=== PATIENT | female | born 1980 | race Caucasian/White ===

== ENCOUNTER 2018-06-12 10:46 | Emergency (ER) | payer SELFPAY ==
[2018-06-12] MEDS ORDERED: HYDROcodone/ACETAMIN 5-325 MG* 1 TAB PO ONE (11:36)
--- OUTSIDE RECORDS SUMMARY | 2018-06-12 11:43 | XMS REPORT | Continuity of Care Document ---
:1980 Author Organization [facility] Care Team Providers Name Role Phone ARUN FANG Admitting Physician ARUN FANG Attending Physician DMITRIY GOTTI Primary Care Physician Allergies and Intolerances No Known Allergies Medications RxNorm Medication Dose Route Instructions Start Date End Date Status Cyclobenzaprine Oral 10 mg oral orally 3 times Active per day (10 days) murina Use as Directed Active 19791015 Naproxen 500 MG Oral 500 mg oral orally 2 times Active Tablet per day (10 days) 8640 Prednisone 40 mg oral orally every day Active (5 days) Cephalexin Oral 500 mg oral orally 4 times Completed per day (7 days) 892190 Clindamycin 300 MG 300 mg oral orally 4 times Completed Oral Capsule per day (10 days) Problems No Data in the system Procedures No data in the system Results Radiology Results Order: SPINE CERVICAL COMPLETEExam Completion Date:05/28/2018 13: 1:22 PM SPINE CERVICAL COMPLETE INDICATION: Pain. Study: Frontal, lateral, and oblique views. COMPARISON: None. Findings/ impression: Moderate disc height loss at C5-6 and C6-C7 with anterior and posterior endplate spurs. Neural foraminal encroachment at C6- C7 bilaterally from uncovertebral joint spurring. No acute fracture, listhesis, or prevertebral soft tissue swelling. Electronically signed By: Omar Ngo M.D. Read By: OMAR NGO Date: 05/28/2018 13:31 Social History Code Code System Social History Observation Description Dates Observed 235284733 SNOMED CT Current Smoking Status Never smoker UNK AdministrativeGender Sex Assigned At Unknown Vital Signs Code Code System Vitals Value Date 8310-5 LOINC Body Temperature 98.8 [degF] 05/28/2018 8865-8 LOINC Pulse Rate 78 {beats}/min 05/28/2018 9279-1 LOINC Respiratory Rate 18 /min 05/28/2018 55265-9 LOINC O2% BldC Oximetry 96 % 05/28/2018 8480-6 LOINC BP Systolic 135 mm[Hg] 05/28/2018 8462-4 LOINC BP Diastolic 88 mm[Hg] 05/28/2018 8302-2 LOINC Height 62 [in_i] 05/28/2018 91934-0 LOINC Weight 88 kg 05/28/2018 3140-1 LOINC Body surface area Derived from formula 1.89 m2 05/28/2018 69713-7 LOINC BMI (Body Mass Index) 35.7 kg/m2 05/28/2018 Goals Section No data in the system Health Concerns No data in the systemEncounter Diagnosis Date Code Code System Diagnosis Status M54.12 ICD10 RADICULOPATHY CERVICAL REGION Active Advance Directives *RHIO - CONSENT IS YES Directive Type 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 Supporting Document Name Address Phone No Directive Type 07/24/2016 7:49:43 Not Specified Not Specified Not Specified None No specified AM Family History Relationship: Father Health Problem Age At Onset Notes Diabetic - good control Hypertension (Hypertensive disorder) Functional Status Code Functional Condition Code System Date Status Independent adls SNOMED CT 05/28/2018 Active Appears well nourished/hydrated SNOMED CT 05/28/2018 Active Immunizations Vaccine Code Code System Vaccine Name Date Status 115 CVX tetanus toxoid, reduced diphtheria 06/14/2014 Completed toxoid, and acellular pertussis vaccine, adsorbed INFLUENZA 2015 Completed Medical Equipment No data in the system Mental Status Code Cognitive Condition Code System Date Status No acute distress SNOMED CT 05/28/2018 Active [facility] [address] [facility]/28[facility]2018 Active Assessment and Plan Assessments No data in the systemPlan Of Treatment No data in the systemPending Tests No data in the system Hospital Discharge Instructions No data in the system Reason for Visit Reason for Visit Neck Pain
--- NOTE | 2018-06-12 12:52 | RAD ---
INDICATION: Severe neck pain with radiation to the LEFT arm for several weeks. COMPARISON: No relevant prior exams available on the [facility] PACS for comparison. TECHNIQUE: Multidetector CT images foramen magnum to lung apices without contrast. Multiplanar reformation. REPORT: 0.5 cm short axis LEFT internal jugular lymph node within normal size limits. Additional normal sized cervical lymph nodes visualized. Negative for lymphadenopathy. Normal vertebral alignment accounting for exam positioning without spondylolisthesis or subluxation at any level. 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 Negative for cervical vertebral body or posterior element fracture. Negative for paravertebral hematoma. At C4-C5 there is mild disc space narrowing. Negative for spinal stenosis. At C5-C6 there is moderately severe disc space narrowing and mild dorsal disc osteophyte complex with only mild resulting impression on the ventral margin of the thecal sac. At C6-C7 there is moderately severe disc space narrowing and dorsal disc osteophyte complex with only mild resulting impression on the ventral margin of the thecal sac. Uncinate process spurring results in moderately severe LEFT foraminal stenosis. IMPRESSION: #. Negative for cervical spine fracture or malalignment. #. 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 #. Degenerative spondylosis and uncinate process osteoarthritis. Resulting slight narrowing of the central canal at C5-C6 and C6-C7 and moderately severe LEFT unilateral foraminal stenosis at C6-C7.
[2018-06-12 13:49] VITALS: BP 140/98
--- NOTE | 2018-06-13 07:24 | ED ---
Neck Pain - HPI Summary HPI Summary: Patient is a 38-year-old female presenting with severe bilateral neck pain extending to the left arm with numbness and tingling since awakening this morning. She endorses pain over the past several weeks, however this has been intermittent and worse drug upon wakening. She denies any trauma or injury to the area. She has never had neck pain or spine pain in the past. She endorses 10/10 pain, constant, burning with radiation to the left arm. Denies any weakness or range of motion issues, however endorses no symptoms tingling without color temperature changes. She has been taking ibuprofen without relief. She states exacerbation occurred approximately 2 weeks ago and was given Flexeril and steroids with good relief. - History of Current Complaint Chief Complaint: EDNeckComplaint Stated Complaint: NECK PAIN Time Seen by Provider: 06/12/18 11:13 Hx Obtained From: Patient Onset/Duration Of Injury/Symptoms: Hours Timing: Constant Onset/Duration: Gradual Onset Severity Initially: Moderate Severity Currently: Moderate Pain Intensity: 6 Pain Scale Used: 0-10 Numeric Character: Aching, Stiff, Burning Aggravating Factors: Position, Movement Alleviating Factors: Nothing Associated Signs & Symptoms: Positive: Negative. Negative: Nuchal Rigity, Weakness, Headache, Paresthesia - Risk Factors Meningitis Risk Factors: Negative - Allergies/Home Medications Allergies/Adverse Reactions: Allergies Allergy/AdvReac Type Severity Reaction Status Date / Time No Known Allergies Allergy Verified 06/12/18 11:12 Home Medications: Home Medications Cyclobenzaprine TAB* [Flexeril 10 MG TAB*] 10 mg PO Q8HR PRN 06/12/18 [History Confirmed 06/12/18] Naproxen [Naprosyn 500 mg tab] 500 mg PO Q6HR PRN 06/12/18 [History Confirmed ] PMH/Surg Hx/FS Hx/Imm Hx Previously Healthy: Yes - Immunization History Hx Pertussis Vaccination: No Immunizations Up to Date: Yes Infectious Disease History: No Infectious Disease History: Denies: Traveled Outside the [place] in Last 30 Days - Social History Occupation: Employed Full-time Lives: With Family Alcohol Use: None Hx Substance Use: No Substance Use Type: Reports: None Hx Tobacco Use: No Smoking Status (MU): Never Smoked Tobacco Review of Systems Constitutional: Negative Negative: Fever, Chills, Fatigue, Skin Diaphoresis Negative: Palpitations, Chest Pain Negative: Shortness Of Breath, Cough Genitourinary: Negative Positive: no symptoms reported, see HPI Negative: Myalgia Skin: Negative Positive: Paresthesia, Numbness Psychological: Normal All Other Systems Reviewed And Are Negative: Yes Physical Exam Triage Information Reviewed: Yes Vital Signs On Initial Exam: Initial Vitals Temp Pulse Resp BP Pulse Ox 97.5 F 100 16 159/96 100 06/12/18 11:00 06/12/18 11:00 06/12/18 11:00 06/12/18 11:00 06/12/18 11:00 Vital Signs Reviewed: Yes Appearance: Positive: Well-Appearing, Well-Nourished Skin: Positive: Warm, Skin Color Reflects Adequate Perfusion Head/Face: Positive: Normal Head/Face Inspection Eyes: Positive: EOMI, PEPE, Conjunctiva Clear Neck: Positive: Supple, No Lymphadenopathy Respiratory/Lung Sounds: Positive: Clear to Auscultation, Breath Sounds Present Cardiovascular: Positive: RRR, Pulses are Symmetrical in both Upper and Lower Extremities Musculoskeletal: Positive: Other - ROM limited d/t pain. Negative: Edema Left, Edema Right Neurological: Positive: Speech Normal, Other - N/T in the left hand/arm Psychiatric: Positive: Normal AVPU Assessment: Alert Diagnostics - Vital Signs Vital Signs Temp Pulse Resp BP Pulse Ox 06/12/18 13:48 98.2 F 93 18 140/98 98 06/12/18 11:00 97.5 F 100 16 159/96 100 - Laboratory Lab Statement: Any lab studies that have been ordered have been reviewed, and results considered in the medical decision making process. Neck Course/Dx - Course Course Of Treatment: On physical examination, patient is exquisitely tender with movement of the left arm radiating up into the left lateral side of the neck and down the arm with numbness or tingling. No weakness is noted. She is tearful on examination. She is given 2 hydrocodone's in the ED, heat pack and she is asked for a soft collar. CT obtained which shows degenerative spondylosis. Resulting slight narrowing of the central canal at C5 and C6 and C6 and C7 and moderately severe left unilateral foraminal stenosis at C6 and C7. This could be contributing to her cervical radiculopathy. She is given neurosurgery follow-up for symptoms not well improved with massage, heat, ibuprofen, Flexeril and rest. She understands these return precautions and will follow-up. - Diagnoses Differential Dx/HQI/PQRI: Positive: Arthritis, Dystonia Provider Diagnoses: Cervical radiculopathy Discharge - Sign-Out/Discharge Documenting (check all that apply): Patient Departure - Discharge Plan Condition: Stable Disposition: HOME Prescriptions: Cyclobenzaprine TAB* [Flexeril TAB*] 10 mg PO BID PRN #15 tab PRN Reason: Pain Hydrocodone/Acetamin 10/325(NF [[place] 10/325 (NF)] 1 tab PO Q6H #12 tab MDD 4 predniSONE TAB* [Deltasone TAB*] 50 mg PO DAILY #5 tab MDD 1 Patient Education Materials: Cervical Radiculopathy (ED) Forms: *Work Release Referrals: No Primary Care Phys,NOPCP [Primary Care Provider] - Mic Julio MD [Medical Doctor] - Additional Instructions: Moist heat Massage rehab care assistant may help Ibuprofen 600mg 3 times daily For pain not well controlled with only ibuprofen, he may add the hydrocodone 10 mg up to 4 times daily Flexeril twice daily Please follow-up with neurosurgery if symptoms persist or worsen Gentle stretches - Billing Disposition and Condition Condition: STABLE Disposition: Home
== END 2018-06-12 13:48 | disposition home or self-care (01) ==
LOC: ED 10:46
DX: M47.22 Other spondylosis with radiculopathy, cervical region (principal); M48.02 Spinal stenosis, cervical region
CPT/HCPCS: 72125; 99282